=== PATIENT | female | born 1985 | race Two or more races ===

== ENCOUNTER 2019-04-12 09:15 | Outpatient (CLI) | payer OTHER | END 2019-04-12 13:15 | disposition home or self-care (01) | LOC: SONOGRAMA 09:15 | DX: E04.1 Nontoxic single thyroid nodule (principal) ==

== ENCOUNTER 2025-03-01 18:02 | Emergency (ER) | payer OTHER ==
[~2025-03-01] VITALS: Ht 167.6 cm; Wt 78.0 kg
[2025-03-01] MEDS ORDERED: SYNTHROID150 MCG PO (18:59)
[2025-03-01 21:15] LABS: BASO % 0.5 % (0.1-1.2); EOS # 0.18 (0.04-0.54); EOS % 1.7 % (0.7-7.0); LYMPH # 1.85 (1.18-3.74); LYMPH % 17.5 % (19.3-53.1); MEAN PLATELET VOLUME 9.70 fl (9.4-12.4); MONO # 0.67 (0.24-0.82); MONO % 6.3 % (4.7-12.5); NEUT # 7.79 (1.56-6.13); NEUT % 73.7 % (34.0-71.1); RED CELL DISTRIBUTION WIDTH 13.9 % (11.6-14.4)
[2025-03-01 21:37] LABS: URINE APPEARANCE Clear; URINE BILIRRUBIN Negative (NEGATIVE); URINE BLOOD Moderate; URINE COLOR Yellow; URINE GLUCOSE Negative (NEGATIVE); URINE KETONE Negative (NEGATIVE); URINE LEUKOCYTE Moderate; URINE NITRATE Negative; URINE PROTEIN Negative (NEGATIVE); URINE UROBILINOGEN 0.2 E.U./dl
[2025-03-01 21:41] LABS: URINE BACTERIA 447.5 uL (0.0-1933); URINE EPITHELIAL CELLS 40.6 uL (0.0-38.8); URINE WBC 98.9 uL (0.0-23.2)
[2025-03-01 21:46] LABS: URINE CAST 0.00 uL (0.0-1.40); URINE RBC 0.8 uL (0.0-20.8)
[2025-03-01 22:04] LABS: ALT/SGPT 24.0 U/L (12-78); AST/SGOT 14.0 U/L (15-37); BILIRUBIN TOTAL 0.3 mg/dL (0.3-1.2); BUN CREA RATIO 13.0 (7.0-25.0); CREATININE SERUM 0.63 mg/dL (0.55-1.02); GFR 105.76; GLOBULINA 3.4 G/DL (2.4-3.5); GLUCOSE FASTING 119.0 mg/dL (65-100); OSMOLALITY SERUM 281.0 MOSM/KG (275-295)
[2025-03-01 22:20] LABS: HCG QUANTITATIVE 30669.0 mUI/mL (1-3)
== END 2025-03-01 23:26 | disposition home or self-care (01) ==
LOC: ER 18:02
PROVIDERS: Emergency Medicine
DX: O20.8 Other hemorrhage in early pregnancy (principal); Z3A.01 Less than 8 weeks gestation of pregnancy; Z85.850 Personal history of malignant neoplasm of thyroid; E03.8 Other specified hypothyroidism; Z91.013 Allergy to seafood